=== PATIENT | male | born 1985 | race Caucasian/White ===

== ENCOUNTER 2018-04-06 11:10 | Emergency (ER) | payer BC ==
[2018-04-06 11:51] VITALS: BP 114/76
[2018-04-06] MEDS ORDERED: Ondansetron ODT TAB* 4 MG PO ONE (12:49)
--- NOTE | 2018-04-06 13:03 | UC ---
Abdominal Pain Male HPI - HPI Summary HPI Summary: ON DAY 2 OF ABDOMINAL CRAMPING, FEELING BLOATED AND NAUSEATED. HAS WATERY STOOLS. THIS MORNING WOKE UP WITH BODY ACHES AND FEVER. NO FLANK PAIN OR URINARY SX. - History of Current Complaint Chief Complaint: UCGeneralIllness Stated Complaint: NAUSEA DIARRHEA CRAMPS Time Seen by Provider: 04/06/18 11:51 Hx Obtained From: Patient Onset/Duration: Gradual Onset, Lasting Days, Still Present Timing: Constant Severity Initially: Moderate Severity Currently: Moderate Pain Intensity: 6 Pain Scale Used: 0-10 Numeric Location: Diffuse Radiates: No Character: Cramping Aggravating Factor(s): Nothing Alleviating Factor(s): Nothing Associated Signs And Symptoms: Positive: Fever, Decreased Appetite, Nausea, Diarrhea. Negative: Back Pain, Blood in Stool, Urinary Symptoms, Vomiting - Allergies/Home Medications Allergies/Adverse Reactions: Allergies Allergy/AdvReac Type Severity Reaction Status Date / Time Penicillins Allergy Rash Verified 04/06/18 11:46 Home Medications: Home Medications Bismuth Subsalicylate [Pepto-Bismol] 262 mg PO Q12H PRN 04/06/18 [History Confirmed 04/06/18] PMH/Surg Hx/FS Hx/Imm Hx Previously Healthy: Yes - Surgical History Surgical History: Yes Surgery Procedure, Year, and Place: bilateral knee surgery ( CARTILAGE REMOVAL & ACL REPAIR) 1998 and 1999, wisdom teeth - Family History Known Family History: Negative: Hypertension - Social History Alcohol Use: None Substance Use Type: None Smoking Status (MU): Never Smoked Tobacco Review of Systems Constitutional: Fever, Fatigue Respiratory: Negative Cardiovascular: Negative Gastrointestinal: Abdominal Pain, Diarrhea, Nausea Genitourinary: Negative All Other Systems Reviewed And Are Negative: Yes Physical Exam Triage Information Reviewed: Yes Appearance: No Pain Distress, Well-Nourished, Ill-Appearing - MODERATE Vital Signs: Initial Vital Signs Temp 100.7 F 04/06/18 11:47 Pulse 91 04/06/18 11:47 Resp 16 04/06/18 11:47 BP 114/76 04/06/18 11:47 Pulse Ox 99 04/06/18 11:47 Vital Signs Reviewed: Yes Eyes: Positive: Conjunctiva Clear ENT: Positive: Hearing grossly normal, Pharynx normal, TMs normal Neck: Positive: Supple, Nontender, No Lymphadenopathy Respiratory Exam: Normal Cardiovascular Exam: Normal Abdomen Description: Positive: Soft, Other: - MINIMALLY BLOATED AND MILDLY TENDER DIFFUSELY. NO REBOUND OR RIGIDITY. Negative: CVA Tenderness (R), CVA Tenderness (L), Guarding Bowel Sounds: Positive: Present Musculoskeletal: Positive: No Edema Neurological: Positive: Alert Psychological: Positive: Age Appropriate Behavior Skin: Negative: rashes Abd Pain Male Course/Dx - Course Course Of Treatment: PT WITH 2 DAYS OF ABDOMINAL CRAMPING AND GI SX WITH LOW GRADE FEVER. LIKELY VIRAL. ADVISED TO MONITOR SX AND IF NOT FEELING IMPROVED OVER THE NEXT FEW DAYS OR IF FEVER WORSENING TO SEEK F/U IN THE ED. - Differential Dx/Clinical Impression Provider Diagnoses: ACUTE VIRAL SYNDROME Discharge - Sign-Out/Discharge Documenting (check all that apply): Patient Departure - Discharge Plan Condition: Stable Disposition: HOME Prescriptions: Ondansetron ODT TAB* [Zofran Odt TAB*] 4 mg PO Q6H PRN #20 tab.odt PRN Reason: Nausea/Vomiting Patient Education Materials: Acute Diarrhea (ED), Viral Syndrome (ED) Referrals: Ziggy Daugherty MD [Primary Care Provider] - If Needed Additional Instructions: YOUR SYMPTOMS ARE LIKELY VIRALLY MEDIATED AND SHOULD RESOLVE ON THEIR OWN WITH TIME. REST, HYDRATE, OTC MEDS NEEDED. IF YOU ARE NOT IMPROVING OVER THE NEXT FEW DAYS GO TO THE ED FOR FURTHER EVALUATION. ENSURE ADEQUATE HYDRATION. CLEAR LIQUIDS, BLAND DIET. AVOID CAFFEINE, DAIRY, GREASY, SPICY FOODS. ONCE YOU ARE TOLERATING CLEAR LIQUIDS YOU CAN ADVANCE TO SIMPLE, BLAND FOODS. VIRAL SYNDROME: The physician has diagnosed a viral infection. Viruses not only cause "colds," but can cause many different symptoms including generalized aching, fever, headache, cough, diarrhea, nausea, vomiting, and fatigue. The treatment, for the most part, is simply relief of symptoms. This means that antibiotics are usually not given. Rest, fluids, pain medications and, occasionally, medication for the specific symptoms that are most bothersome will be prescribed. Go to the ED if you develop any new or unusual symptoms such as severe headache, stiff neck, high fever, chest pain, productive cough, or shortness of breath. You should be rechecked if you don't see marked improvement within 10 to 14 days. IBUPROFEN MAX DOSE: 600MG (3 TABS) EVERY 6 HRS OR 800MG (4 TABS) EVERY 8 HRS OR NAPROXEN MAX DOSE: 440MG (2 TABS) EVERY 12 HRS TYLENOL MAX DOSE: 1000MG (2 EXTRA STRENGTH TABS) EVERY 8 HRS OR 650MG (2 REGULAR TABS) EVERY 6 HRS - Billing Disposition and Condition Condition: STABLE Disposition: Home
== END 2018-04-06 13:30 | disposition home or self-care (01) ==
LOC: UCEAST 11:10
DX: B34.9 Viral infection, unspecified (principal); R10.84 Generalized abdominal pain; Z88.0 Allergy status to penicillin
CPT/HCPCS: 99202; A9270-GY; G0463